=== PATIENT | male | born 1955 | race Caucasian/White ===

== ENCOUNTER 2022-01-18 08:09 | Emergency (ER) | payer OTHER, SELFPAY ==
[2022-01-18 08:22] VITALS: BP 135/88; PULSE 52; RESP 16; TEMP 36.6; O2SAT 99
--- NOTE | 2022-01-18 08:45 | DI.RAD_ITS ---
Exam(s) XR PORTABLE CHEST AP EXAM: XR PORTABLE CHEST AP CLINICAL HISTORY: cough, shortness of breath. TECHNIQUE: 2D digital imaging was performed. COMPARISON: No exams were available for comparison FINDINGS: Single AP portable view. Heart size is upper normal. The mediastinum is not widened. Lungs are clear. No infiltrates nor obvious pleural effusions. IMPRESSION: No acute pulmonary findings on this single AP portable view of the chest. DATA REPOSITORY: RADIATION DOSE DELIVERED: All CT scans at this facility use at least one of these dose optimization techniques: automated exposure control; mA and/or kV adjustment per patient size (includes targeted e xams where dose is matched to clinical indication); or iterative reconstruction.
--- NOTE | 2022-01-18 08:58 | ED.GENADUL_ITS ---
Discharge Plan Disposition Patient Disposition: HOME Condition: Stable Discharge Details Clinical Impression: COVID Primary Care Provider: Unknown,Unknown ED Provider: Jenny Giordano Home Meds and New Rx's Prescriptions: No Action No Known Home Meds Discharge Instructions Instructions: Acute Bronchitis (ED) Additional Instructions: Increased fluid hydration May use Mucinex as needed for productive cough Use your albuterol inhaler, 2 puffs every 4-6 hours as needed for cough, wheeze, shortness of breath Given given a single dose of steroid that will last for approximately 72 hours and will help with your cough and shortness of breath We will call you if your COVID or flu is negative, continue to isolate, Please return should you have new or worsening Discharge Data Discharge Date/Time-TO BE ENTERED AT DEPARTURE: 01/18/22 09:59 Medical Decision Making COVID-positive Patient made aware He is actually on day 10 and is vaccinated but still symptomatic so we will continue to isolate Increase fluid hydration Given single dose of Decadron for comfort Inhaler for home Return precautions discussed and patient expressed understanding Medical Records Medical records reviewed: Yes I reviewed the patient's medical records. Lab Data Lab results reviewed: Yes I reviewed the patient's lab results. HPI General Date/Time Provider Initiated Documentation: 01/18/22 08:26 . HPI Narrative: This 66-year-old gentleman who is otherwise healthy presents with report of cough and congestion for the past 10 days. He states he had 2 negative antigen COVID test. He states that he had myalgias and some intermittent tightness with coughing. He he denies any hemoptysis. He has had green sputum today. He denies any calf pain or swelling, recent flights, surgeries, long drives. He denies any current chest pain. He states he presents secondary to coughing and hungry since morning. 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 Related Data Home Medications Medication Instructions Recorded Confirmed Unknown [No Known Home Meds] 01/18/22 01/18/22 Allergies Allergy/AdvReac Type Severity Reaction Status Date / Time influenza virus vaccine, Allergy Verified 01/18/22 08:25 specific General Stated Complaint: RespSymp YOU: 4 Review of Systems All systems reviewed & are unremarkable except as noted in HPI and below PFSH All Active Problems (Updated 01/19/22 @ 18:36 by OG Herring) COVID (Acute) Social History Smoking/Tobacco Use Status: Never Smoking risk assessment performed?: Yes Alcohol Intake: never Substance use type: does not use Do you feel safe at home: Yes Do you feel safe in your relationship?: Yes Exam Const General: cooperative, comfortable and no acute distress HENMT Head: normal to inspection Mouth: oral mucosae normal Eyes Sclera: sclerae normal Resp Effort & Inspection: normal respiratory effort Auscultation: clear to auscultation bilaterally Cardio Rate: regular rate Rhythm: regular rhythm GI Inspection: normal to inspection Neuro General: patient alert and patient oriented x3 Extrem Other: distal pulses intact Course Vital Signs Vital signs: Vital Signs Temperature 36.6 C 01/18/22 08:22 Pulse 52 L 01/18/22 08:22 Respiratory Rate 16 01/18/22 08:22 Blood Pressure 135/88 01/18/22 08:22 Pulse Oximetry 99 01/18/22 08:22 Temperature 36.6 C 01/18/22 08:22 Temperature Source Skin 01/18/22 08:22 Pulse 52 L 01/18/22 08:22 Respiratory Rate 16 01/18/22 08:22 Respiratory Effort Non-Labored 01/18/22 08:26 Respiratory Depth Normal 01/18/22 08:26 Blood Pressure 135/88 01/18/22 08:22 Blood Pressure Position Sitting 01/18/22 08:22 Pulse Oximetry 99 01/18/22 08:22 Oxygen Delivery Method Room Air 01/18/22 08:22 Oxygen Flow Rate 0 01/18/22 08:22 Pain Level 0 01/18/22 08:22
[2022-01-18 09:51] LABS: Influenza A PCR Negative (Negative); Influenza B PCR Negative (Negative); RSV PCR Negative (Negative)
[2022-01-18] MEDS: Albuterol HFA 8 GM 60 PUFF INH IH (09:57)
[2022-01-18] MEDS: Dexamethasone 10 MG/ML VIAL PO (09:57)
[2022-01-18 10:11] LABS: Source Nasopharynx
[2022-01-18 10:12] LABS: COVID-19 PCR Positive (Negative)
== END 2022-01-18 09:59 | disposition home or self-care (01) ==
PROVIDERS: Emergency Provider Physician Assistant
DX: U07.1 COVID-19 (principal)
CPT/HCPCS: 87637; 94640; 99283; 71045; 99284; J1100

== ENCOUNTER 2022-05-14 13:39 | Emergency (ER) | payer OTHER, SELFPAY ==
[2022-05-14 13:43] VITALS: BP 123/63; PULSE 60; RESP 17; TEMP 36.8; O2SAT 99
--- NOTE | 2022-05-14 14:45 | DI.CT_ITS ---
Exam(s) CT ABDOMEN PELVIS W EXAM: CT ABDOMEN PELVIS W CLINICAL HISTORY: RUQ abd pain TECHNIQUE: Imaging Protocol: Axial computed tomography images with coronal and sagittal reformatted images were created and reviewed CONTRAST MATERIAL: Intravenous: Omnipaque 350 Contrast volume:100 mL Oral: No COMPARISON: No exams were available for comparison FINDINGS: ABDOMEN: Lung Bases: There is a small hiatal hernia. Liver: Normal density. No measurable mass. Portal, Superior Mesenteric, and Splenic Veins: Unremarkable. Gallbladder and Biliary Tract: No radiodense calculus or dilation. Pancreas: Normal density, no abnormal calcifications or inflammatory process. Spleen: Normal. Adrenals: No masses seen. Kidneys: Normal size, contour and axis. No radiodense stones or obstructive uropathy. No masses seen. Abdominal Aorta: Abdominal portion non-dilated. Bowel: No evidence of bowel obstruction. Mild wall thickening in the proximal small bowel. There al so appears to be mild thickening of the wall of the rectum. No evidence of appendicitis. Peritoneal Cavity: There is a trace amount of free fluid in the pelvis. No free air. Lymph Nodes: Mildly enlarged lymph nodes are seen in the mesentery. Bones: Within normal limits for the patient's age. Soft Tissues: There is a small fat containing umbilical hernia. There is a small fat containing left inguinal hernia. PELVIS: Bladder: Symmetric distention, no gross wall thickening. Reproductive Organs: Unremarkable as visualized. Lymph Nodes: Within normal limits. Bones: Within normal limits for the patient's age. IMPRESSION: 1. Trace free fluid in the pelvis. 2. Mild thickening of the wall of the rectum. This may represent inflammatory/infectious process. M ass cannot be excluded. Please correlate clinically. 3. Enlarged mesenteric lymph nodes consistent with mesenteric adenitis. 4. Mild wall thickening in loops of small bowel which may represent a enteritis. RADIATION DOSE DELIVERED: 921.24mGy.cm Total DLP DATA REPOSITORY: All CT scans at this facility are submitted to the National Radiology Data Registry (NRDR) Dose Index Registry (DIR) with the [employer] ([employer]). RADIATION OPTIMIZATION: All CT scans at this facility use at least one of these dose optimization te chniques: automated exposure control; mA and/or kV adjustment per patient size (includes targeted exa ms where dose is matched to clinical indication); or iterative reconstruction.
[2022-05-14 15:28] LABS: Abs Immature Grans 0.01 10^3/uL (0.0-0.06); HCT 41.6 % (40.0-50.0); HGB 14.3 g/dL (13.5-17.5); MCH 31.4 pg (27.0-33.0); MCHC 34.4 % (32.0-36.0); MCV 91 fL (80-95); MPV 10.6 fL (8.0-11.0); Platelet Count 184 10^3/uL (130-400); RBC 4.55 10^6/uL (4.36-5.78); RDW 11.7 % (11.8-14.1); RDW-SD 39.6 fL; WBC 4.73 10^3/uL (4.4-10.8)
[2022-05-14] MEDS: Ondansetron 4 MG/2 ML VIAL IVP (15:37)
[2022-05-14 15:41] LABS: Absolute Eosinophil Count 0.09 10^3/uL (0.0-0.7); Absolute Lymphocyte Count 0.95 10^3/uL (1.2-3.4); Absolute Monocyte Count 0.61 10^3/uL (0.1-0.8); Absolute Neutrophil Count 3.07 10^3/uL (1.2-6.7); Atypical Lymphocytes % 1
[2022-05-14] MEDS: Normal Saline 1,000 ML 1000 ML IV (15:41)
[2022-05-14 15:42] LABS: Diff Comment Manual Differential; Lipase 48 U/L (73-393); Magnesium 2.1 mg/dL (1.8-2.4); RBC Morphology Normal
[2022-05-14 15:45] LABS: ALT 23 U/L (16-63); AST 20 U/L (15-37); Albumin 3.6 g/dL (3.4-5.0); Alkaline Phosphatase 54 U/L (46-116); Anion Gap 7.4 mmol/L (3-11); BUN 19 mg/dL (7-18); CO2 28.6 mmol/L (21.0-32.0); Calcium 8.9 mg/dL (8.5-10.1); Chloride 101 mmol/L (98-107); Estimated GFR 84.05 (mL/min/1.73m2); Glucose 89 mg/dL (74-106); Potassium 4.1 mmol/L (3.5-5.1); Sodium 137 mmol/L (136-145); Total Protein 7.4 g/dL (6.4-8.2)
--- NOTE | 2022-05-14 16:13 | ED.GENADUL_ITS ---
Discharge Plan Disposition Patient Disposition: HOME Condition: Stable Discharge Details Clinical Impression: Acute mesenteric lymphadenitis, Nausea & vomiting Primary Care Provider: NILDA ISSA ED Provider: Enriqueta Steinberg Home Meds and New Rx's Prescriptions: New ondansetron 4 mg tablet,disintegrating 4 mg PO Q8H PRN5 Days Qty: 15 0RF Discharge Instructions Instructions: Acute Nausea and Vomiting (ED) Additional Instructions: Today the CT shows some inflammation of the lymph nodes around her abdomen. Other findings as discussed. Labs are largely within normal limits. Please take the nausea medication up to 3 times daily as needed for nausea and vomiting. Follow up with primary care provider in 3-5 days. Return to ED sooner if any worsening or concerns. Increase oral fluids. Please take Tylenol or Ibuprofen with food every 4-6 hours as needed for pain and swelling. Referrals: NILDA ISSA [Primary Care Provider] - 3 days Discharge Data Discharge Date/Time-TO BE ENTERED AT DEPARTURE: 05/14/22 18:02 Medical Decision Making <Jim Melo NP - Last Filed: 05/15/22 08:32> Patient presenting the emergency department for nausea and vomiting and malaise with subjective chills for the last 3 days. He states it is acutely worsened today with more nausea and episodes of vomiting. Patient denies any other symptoms, food intake that was spoiled. He does state that he was bit by tick 4 days ago but remove the tick right away and it was not engorged or embedded. Denies any rash and joint symptoms and known fever. Physical exam shows right upper quadrant and epigastric tenderness but otherwise unremarkable exam. We will plan on doing standard typical abdominal pain work-up with CT imaging. <Enriqueta Steinberg NP - Last Filed: 05/14/22 20:00> Medical Records Medical records reviewed: Yes I reviewed the patient's medical records. Medical records narrative: 5119: Care assumed from provider (Mike Melo NP) Please see their initial HPI, PE, and documentation. Discussed patient details and case and pending workup and disposition. Patient is hemodynamically stable, and alert and oriented. At the time of signout pending CT abdomen pelvis. Labs are returned which no no leukocytosis, CMP largely within normal limits BUN slightly elevated at 19, no other electrolyte abnormality, lipase within normal limits urinalysis is pending at this time COVID flu and RSV is pending. 1741: Discussed CT results with patient who verbalizes understanding. He is reporting feeling much better. I did discuss the circumferential rectal wall thickening and he reports that he has had a hemorrhoidectomy in the past and is wondering if this is scar tissue. He reports he has been constipated recently but did have a bowel movement with no pain. I did discuss follow-up with his primary care provider who is [facility]. I will give him the radiology read. Discussed home care and strict return instructions. He verbalizes understanding This text was generated using [employer] dictation system, please disregard any oddities of phrase or misspellings. Imaging Data Radiologic Study: Imaging: CT Scan Radiologist's impression: IMPRESSION: 1. Trace free fluid in the pelvis. 2. Possible rectal wall mass or lesion. 3. Mesenteric adenopathy and infiltration of the mesenteric fat consistent with mesenteric lymphadenitis. 4. Enlarged mesenteric vessels possibly related to the mesenteric lymph adenitis. 5. Distended loops of proximal small bowel of uncertain significance. 6. Possible prior appendectomy. 7. Multiple additional findings as discussed above. Thank you for allowing us to participate in the care of your patient. Dictated and Authenticated by: Salma Mendoza MD Lab Data Lab results reviewed: Yes I reviewed the patient's lab results. Labs: Laboratory Tests Range/Units 05/14/22 05/14/22 05/14/22 15:12 15:12 15:12 WBC (4.4-10.8) 10^3/uL 4.73 RBC (4.36-5.78) 10^6/uL 4.55 Hgb (13.5-17.5) g/dL 14.3 Hct (40.0-50.0) % 41.6 MCV (80-95) fL 91 MCH (27.0-33.0) pg 31.4 MCHC (32.0-36.0) % 34.4 RDW (11.8-14.1) % 11.7 L Plt Count (130-400) 10^3/uL 184 MPV (8.0-11.0) fL 10.6 Immature Gran % 0.0 Neutrophils % 65.0 Lymphocytes % 19.0 Atypical Lymphs % 1 Monocytes % 13.0 Eosinophils % 2.0 Basophils % 0.0 Nucleated RBC % (0.0-0.3) % 0.0 Absolute Neutrophils (1.2-6.7) 10^3/uL 3.07 Absolute Lymphocytes (1.2-3.4) 10^3/uL 0.95 L Absolute Monocytes (0.1-0.8) 10^3/uL 0.61 Absolute Eosinophils (0.0-0.7) 10^3/uL 0.09 Absolute Basophils (0.0-0.2) 10^3/uL 0.00 RBC Morphology Normal Sodium (136-145) mmol/L 137 Potassium (3.5-5.1) mmol/L 4.1 Chloride (98-107) mmol/L 101 Carbon Dioxide (21.0-32.0) mmol/L 28.6 Anion Gap (3-11) mmol/L 7.4 BUN (7-18) mg/dL 19 H Creatinine (0.70-1.30) mg/dL 1.0 Est GFR (CKD-EPI 2020) (mL/min/1.73m2) 84.05 Glucose (74-106) mg/dL 89 Calcium (8.5-10.1) mg/dL 8.9 Magnesium (1.8-2.4) mg/dL 2.1 Total Bilirubin (0.2-1.0) mg/dL 1.0 AST (15-37) U/L 20 ALT (16-63) U/L 23 Alkaline Phosphatase (46-116) U/L 54 Total Protein (6.4-8.2) g/dL 7.4 Albumin (3.4-5.0) g/dL 3.6 Lipase (73-393) U/L 48 HPI <Jim Melo NP - Last Filed: 05/15/22 08:32> General Mode of arrival: ambulatory . Date/Time Provider Initiated Documentation: 05/14/22 13:41 . Limitations to Documentation: no limitations . Information obtained by: patient and RN notes reviewed . History of Present Illness 66 year old M presents to the emergency department with the chief complaint of Nausea vomiting, described as moderate, with intensity rated at 5. Quality is described as aching, and is localized to the abdomen. Patient started experiencing this day(s) (4) and it has been constant. No relieving factors improve symptom(s), No exacerbating factors reported . Patient did receive the following treatments prior to arrival, none Related Data Home Medications Medication Instructions Recorded Confirmed ondansetron 4 mg disintegrating 4 mg PO Q8H PRN 5 days #15 tabs 05/14/22 tablet Previous Rx's Medication Instructions Recorded ondansetron 4 mg disintegrating 4 mg PO Q8H PRN 5 days #15 tabs 05/14/22 tablet Allergies Allergy/AdvReac Type Severity Reaction Status Date / Time influenza virus vaccine, Allergy Verified 05/14/22 13:47 specific General Stated Complaint: Nausea/Vomit/Diar YOU: 4 Review of Systems <Jim Melo NP - Last Filed: 05/15/22 08:32> Constitutional Constitutional: Reports chills, Reports fatigue, Reports fever(s), Reports malaise and Reports poor appetite Cardiovascular Cardiovascular: Denies chest pain and Denies dyspnea Respiratory Respiratory: Denies cough and Denies dyspnea Gastrointestinal Gastrointestinal: Reports as per HPI, Reports abdominal pain, Denies melena, Denies change in bowel habits, Denies constipation, Denies diarrhea, Reports nausea and Reports vomiting Genitourinary Genitourinary: Denies hematuria, Denies difficulty urinating and Denies dysuria Musculoskeletal Musculoskeletal: Denies back pain Integumentary/Breasts Skin/Breast: Denies rash Endocrine Endocrine: Reports fatigue PFSH <Jim Melo NP - Last Filed: 05/15/22 08:32> All Active Problems (Updated 05/14/22 @ 17:44 by Enriqueta Steinberg NP) COVID (Acute) Acute mesenteric lymphadenitis (Acute) Nausea & vomiting (Acute) Social History Smoking/Tobacco Use Status: Never Smoking risk assessment performed?: Yes Alcohol Intake: never Drug use: Never Substance use type: does not use Do you feel safe at home: Yes Do you feel safe in your relationship?: Yes Exam <Jim Melo NP - Last Filed: 05/15/22 08:32> Const General: cooperative Orientation: alert, awake and oriented x3 Resp Effort & Inspection: normal respiratory effort and able to speak in complete sentences Auscultation: clear to auscultation bilaterally Cardio Rate: regular rate Rhythm: regular rhythm Heart Sounds: S1 normal and S2 normal GI Palpation: soft, no hepatosplenomegaly, not firm, no guarding, no masses, no pulsatile masses, not rigid, no splenomegaly and tender in the epigastrum and in the RUQ Auscultation: normal bowel sounds Back/Spine/Pelvis Back: no CVA tenderness Neuro General: patient alert, patient awake, patient oriented x3, gait normal and moves all extremities Course <Jim Melo, BORIS - Last Filed: 05/15/22 08:32> Vital Signs Vital signs: Vital Signs Temperature 36.8 C 05/14/22 13:43 Pulse 60 05/14/22 13:43 Respiratory Rate 17 05/14/22 13:43 Blood Pressure 123/63 05/14/22 13:43 Pulse Oximetry 99 05/14/22 13:43 Temperature 36.8 C 05/14/22 13:43 Temperature Source Temporal Artery Scan 05/14/22 13:43 Pulse 60 05/14/22 13:43 Respiratory Rate 17 05/14/22 13:43 Respiratory Effort Non-Labored 05/14/22 13:44 Blood Pressure 123/63 05/14/22 13:43 Blood Pressure Position Sitting 05/14/22 13:43 Pulse Oximetry 99 05/14/22 13:43 Oxygen Delivery Method Room Air 05/14/22 13:43 Oxygen Flow Rate 0 05/14/22 13:43 Pain Level 0 05/14/22 13:43 Lab/Test Results Lab/Test Results: Laboratory Tests Range/Units 05/14/22 05/14/22 05/14/22 15:12 15:12 15:12 WBC (4.4-10.8) 10^3/uL 4.73 RBC (4.36-5.78) 10^6/uL 4.55 Hgb (13.5-17.5) g/dL 14.3 Hct (40.0-50.0) % 41.6 MCV (80-95) fL 91 MCH (27.0-33.0) pg 31.4 MCHC (32.0-36.0) % 34.4 RDW (11.8-14.1) % 11.7 L Plt Count (130-400) 10^3/uL 184 MPV (8.0-11.0) fL 10.6 Immature Gran % 0.0 Neutrophils % 65.0 Lymphocytes % 19.0 Atypical Lymphs % 1 Monocytes % 13.0 Eosinophils % 2.0 Basophils % 0.0 Nucleated RBC % (0.0-0.3) % 0.0 Absolute Neutrophils (1.2-6.7) 10^3/uL 3.07 Absolute Lymphocytes (1.2-3.4) 10^3/uL 0.95 L Absolute Monocytes (0.1-0.8) 10^3/uL 0.61 Absolute Eosinophils (0.0-0.7) 10^3/uL 0.09 Absolute Basophils (0.0-0.2) 10^3/uL 0.00 RBC Morphology Normal Sodium (136-145) mmol/L 137 Potassium (3.5-5.1) mmol/L 4.1 Chloride (98-107) mmol/L 101 Carbon Dioxide (21.0-32.0) mmol/L 28.6 Anion Gap (3-11) mmol/L 7.4 BUN (7-18) mg/dL 19 H Creatinine (0.70-1.30) mg/dL 1.0 Est GFR (CKD-EPI 2020) (mL/min/1.73m2) 84.05 Glucose (74-106) mg/dL 89 Calcium (8.5-10.1) mg/dL 8.9 Magnesium (1.8-2.4) mg/dL 2.1 Total Bilirubin (0.2-1.0) mg/dL 1.0 AST (15-37) U/L 20 ALT (16-63) U/L 23 Alkaline Phosphatase (46-116) U/L 54 Total Protein (6.4-8.2) g/dL 7.4 Albumin (3.4-5.0) g/dL 3.6 Lipase (73-393) U/L 48 Sign Out <Jim Melo NP - Last Filed: 05/15/22 08:32> Sign Out Data: Sign Out Comment: Patient pending CT imaging and review of labs prior to dispo sition. Last updated by Jim Melo NP at 05/14/22 16:15
[2022-05-14 16:33] LABS: COVID-19 PCR Negative (Negative); Influenza A PCR Negative (Negative); Influenza B PCR Negative (Negative); RSV PCR Negative (Negative)
[2022-05-14 16:35] LABS: Source Nasopharynx
[2022-05-14] MEDS: Normal Saline Flush 10 ML SYR IVP (16:36)
[2022-05-14] MEDS: Omnipaque 350 MG/ML 100 ML BTL IJ (16:37)
--- NOTE | 2022-05-14 16:56 | NUR.NOTE ---
Nursing Note: pt just returned from DI. Is feeling much improved and no longer nauseated. is now taking sips of gingerale.
--- NOTE | 2022-05-14 17:15 | DI.VRAD_ITS ---
PROCEDURE INFORMATION: Exam: CT Abdomen And Pelvis With Contrast Exam date and time: 05/14/2022 4:45 PM Age: 66 years old Clinical indication: Other: Ruq abd pain TECHNIQUE: Imaging protocol: Computed tomography of the abdomen and pelvis with contrast. COMPARISON: CR XR PORTABLE CHEST AP 11/20/2021 08:58 FINDINGS: Diaphragm: Hiatal hernia. Liver: Normal. No mass. Gallbladder and bile ducts: Normal. No calcified stones. No ductal dilation. Pancreas: Normal. No ductal dilation. Spleen: Normal. No splenomegaly. Adrenal glands: Normal. No mass. Kidneys and ureters: Normal. No hydronephrosis. Stomach and bowel: Moderate solid stool volume. Dilated proximal small bowel measuring 3.5 cm. Circumferential rectal wall thickening with mild perirectal fat infiltration. Appendix: The appendix is not identified but there is radiopaque density in the right lower quadrant series 4, image 69 which may be surgical clips from prior appendectomy. Intraperitoneal space: Haziness of the mesenteric fat. Trace free fluid in the pelvis series 4, image 75. Vasculature: Enlarged mesenteric vessels with serpiginous pattern of uncertain significance. Lymph nodes: Scattered retroperitoneal lymph nodes. Enlarged mesenteric lymph nodes. Urinary bladder: Unremarkable as visualized. Reproductive: Punctate prostate calcifications. Bones/joints: Multilevel degenerative changes of the spine. Multilevel degenerative changes of the spine. Soft tissues: Umbilical hernia. Fat distension of the left inguinal canal. IMPRESSION: 1. Trace free fluid in the pelvis. 2. Possible rectal wall mass or lesion. 3. Mesenteric adenopathy and infiltration of the mesenteric fat consistent with mesenteric lymphadenitis. 4. Enlarged mesenteric vessels possibly related to the mesenteric lymph adenitis. 5. Distended loops of proximal small bowel of uncertain significance. 6. Possible prior appendectomy. 7. Multiple additional findings as discussed above. Dictated and Authenticated by: Salma Mendoza MD. Ordering:ODALIS Fernandez MD
[2022-05-14 17:48] LABS: Bilirubin Negative (Negative); Blood Negative (Negative); Clarity Clear (Clear); Glucose Negative (Negative); Ketones 40 mg/dL (Negative); Leukocyte Esterase Negative (Negative); Nitrite Negative (Negative)
[2022-05-14] MEDS: Ondansetron O.D.T. 4 MG TABEF, 3 TABS/BTL PO (18:02)
--- NOTE | 2022-05-18 08:31 | NUR.NOTE ---
Nursing Note: At patient's request the work note was faxed to [phone] with attention Freddy.
== END 2022-05-14 18:02 | disposition home or self-care (01) ==
PROVIDERS: Nurse Practitioner Family; Emergency Provider Registered Nurse Emergency; PCP Nurse Practitioner Acute Care
DX: I88.0 Nonspecific mesenteric lymphadenitis (principal); Z20.822 Contact with and (suspected) exposure to COVID-19
CPT/HCPCS: 36415; 80053; 83690; 87637; 96361; 96374; 99285; 74177; 81003; 83735; 85025; 99284; J2405; J3490

== ENCOUNTER 2022-09-15 07:13 | Emergency (ER) | payer OTHER, SELFPAY ==
[2022-09-15 07:19] VITALS: BP 145/85; PULSE 50; RESP 18; TEMP 36.4; O2SAT 98
--- NOTE | 2022-09-15 07:31 | W.ED.GENAD ---
Discharge Plan Disposition Patient Disposition: Home Discharge Details Clinical Impression: Acute sinus infection Primary Care Provider: NILDA ISSA ED Provider: Ramone Norton Home Meds and New Rx's Prescriptions: New amoxicillin-pot clavulanate 875-125 mg tablet 1 tab PO BID Qty: 20 0RF Discharge Instructions Instructions: Sinusitis (ED) Additional Instructions: At this time your symptoms are consistent with mild sinusitis. Likely stems from a viral infection. At this stage it does not appear consistent with a significant bacterial infection. As we discussed together, please utilize a [place] pot or a steamy environment to help loosen the mucus and drain your sinuses. Please apply the gentle massage to the areas on your brow and below your eyes as we discussed 3-5 times per day. Please use [id number] saline rinse/spray to help continue to maintain moisture at your sinuses for drainage. If your symptoms do not improve over the next 3 to 4 days with this treatment, please take the antibiotic as prescribed. We will contact you if your COVID/flu/RSV test results returned positive. If you notice any worsening of your symptoms, or any new symptoms such as vomiting, diarrhea, fever, chills, shortness of breath, chest pain, numbness, weakness, or fainting , please return immediately to the emergency department for reevaluation. Please follow up with your primary care provider as soon as possible for reassessment and reevaluation. As always, it was a pleasure participating in your medical care today. Stand Alone Forms: Work Release Referrals: NILDA ISSA [Primary Care Provider] - Medical Decision Making This is a pleasant 67-year-old male with no significant past medical history who presents today for sinus infection-like symptoms. Patient states that for the last 4 days he has had a mild runny nose, sinus pressure and congestion. He has noted a small tingeing of blood in his mucus when he coughs or sneezes out his nose. He denies any fever or chills. He denies any chest pain or shortness of breath. He is does admit to frontal sinus pressure and a mild headache secondary to this. He has not taken any medications or therapies for treatment. He denies any vision changes. He denies any history of HIV. No other complaints at this time. No other modifying factors. Patient is well-appearing male, no signs of acute distress. Lungs are clear. Vital signs notably stable. Mild pressure and tenderness over the frontal and maxillary sinuses on percussion. Symptoms consistent with mild sinusitis. Likely viral. We will test for flu COVID and RSV and contact him if his results are positive. We will send a prescription for an antibiotic if his symptoms do not improve over the next 3 to 4 days. Will recommend facial nerve massage, humidifier, [place] pot, and saline rinse for home use. Discussed red flags for which to return. I have extensively reviewed the treatment plan and discharge instructions with the patient. I have addressed all patient concerns at this time. The patient was made aware of what symptoms to monitor for that would warrant a return to the emergency department. Discussed the plan with the patient, they demonstrate verbal understanding and agreement with our assessment and plan at this time. The documentation in this chart was dictated using [employer] dictation software. Please excuse any dictation errors. HPI General Date/Time Provider Initiated Documentation: 09/15/22 07:19. HPI Narrative: This is a pleasant 67-year-old male with no significant past medical history who presents today for sinus infection-like symptoms. Patient states that for the last 4 days he has had a mild runny nose, sinus pressure and congestion. He has noted a small tingeing of blood in his mucus when he coughs or sneezes out his nose. He denies any fever or chills. He denies any chest pain or shortness of breath. He is does admit to frontal sinus pressure and a mild headache secondary to this. He has not taken any medications or therapies for treatment. He denies any vision changes. He denies any history of HIV. No other complaints at this time. No other modifying factors. Related Data Home Medications Medication Instructions Recorded Confirmed amoxicillin 875 mg-potassium 1 tab PO BID #20 tabs 09/15/22 clavulanate 125 mg tablet Previous Rx's Medication Instructions Recorded amoxicillin 875 mg-potassium 1 tab PO BID #20 tabs 09/15/22 clavulanate 125 mg tablet Allergies Allergy/AdvReac Type Severity Reaction Status Date / Time influenza virus vaccine, Allergy Verified 09/15/22 07:31 specific General Stated Complaint: Headache YOU: 4 Review of Systems All systems reviewed & are unremarkable except as noted in HPI and below PFSH All Active Problems (Updated 09/15/22 @ 07:32 by BLAKE Jaime COVID (Acute) Acute sinus infection (Acute) Social History Smoking/Tobacco Use Status: Never Smoking risk assessment performed?: Yes Alcohol Intake: never Drug use: Never Substance use type: does not use Do you feel safe at home: Yes Do you feel safe in your relationship?: Yes Exam Narrative Exam Narrative: 1.Const: Well-nourished, Well-developed, appearing stated age 2.Eyes: PERRL, no conjunctival injection, and symmetrical lids. 3.ENT: Atraumatic external nose and ears. Moist MM. Neck: Symmetric, trachea midline, No thyromegaly. Tympanic membranes are ocasio and pearly. Small amount of nasal discharge is noted. No erythema in the posterior oropharynx. Percussion over the frontal and maxillary sinuses demonstrates mild tenderness. 4.CVS: +S1/S2, No murmurs or gallops. Peripheral pulses 2+ and equal in all extremities. Brisk capillary refill in all extremities. 5.RESP: Unlabored respiratory effort. Clear to auscultation bilaterally. No wheezes rales or rhonchi 6.GI: Soft, Nontender/Nondistended, No hepatosplenomegaly. No guarding or rebound. 7.MSK: Normocephalic/Atraumatic, Extremities w/o deformity or ttp No cyanosis or clubbing, Normal movement of all extremities 8.Skin: Warm, Dry. No rashes or lesions. 9.Neuro: hr assistant II-XII grossly intact. Sensation grossly intact, no focal neurologic deficits. 10.Psych: (AAO) x3. Appropriate mood and affect Course Vital Signs Vital signs: Vital Signs Temperature 36.4 C 09/15/22 07:19 Pulse 50 L 09/15/22 07:19 Respiratory Rate 18 09/15/22 07:19 Blood Pressure 145/85 H 09/15/22 07:19 Pulse Oximetry 98 09/15/22 07:19 Temperature 36.4 C 09/15/22 07:19 Temperature Source Oral 09/15/22 07:19 Pulse 50 L 09/15/22 07:19 Respiratory Rate 18 09/15/22 07:19 Respiratory Effort Normal 09/15/22 07:30 Blood Pressure 145/85 H 09/15/22 07:19 Blood Pressure Position Sitting 09/15/22 07:19 Pulse Oximetry 98 09/15/22 07:19 Oxygen Delivery Method Room Air 09/15/22 07:19 Oxygen Flow Rate 0 09/15/22 07:19 Pain Level 2 09/15/22 07:19
[2022-09-15 08:17] LABS: COVID-19 PCR Negative (Negative); Influenza A PCR Negative (Negative); Influenza B PCR Negative (Negative); RSV PCR Negative (Negative); Source Nasopharynx
== END 2022-09-15 07:42 | disposition home or self-care (01) ==
PROVIDERS: Emergency Provider Student in an Organized Health Care Education/Training Program; PCP Nurse Practitioner Acute Care
DX: J01.80 Other acute sinusitis (principal)
CPT/HCPCS: 87637; 99283

== ENCOUNTER → 2023-10-30 05:08 | Outpatient (CLI) | payer MEDICARE, SELFPAY ==
--- NOTE | 2023-10-30 14:06 | DI.RAD_ITS ---
Exam(s) XR CERVICAL SPINE COMP 4-5V EXAM: XR CERVICAL SPINE COMP 4-5V CLINICAL HISTORY: CERVICAL RADICULAR PAIN, M54.12. TECHNIQUE: 2D digital imaging was performed. Five views were performed. COMPARISON: No exams were available for comparison FINDINGS: There is moderate to severe narrowing of the C3-4 through C6-7 disc spaces. There are prominent endp late osteophytes. There is bilateral neural foraminal narrowing at these levels. There is some stra ightening of normal cervical lordosis secondary to degenerative changes. Facet degenerative changes are also present. The soft tissues are unremarkable. IMPRESSION: Advanced degenerative changes. DATA REPOSITORY: RADIATION DOSE DELIVERED:
--- NOTE | 2023-10-30 14:06 | DI.RAD_ITS ---
Exam(s) XR LUMBAR SPINE COMPLETE EXAM: XR LUMBAR SPINE COMPLETE CLINICAL HISTORY: low back pain, chronic,M54.50. TECHNIQUE: 2D digital imaging was performed. Five views. COMPARISON: No exams were available for comparison FINDINGS: BONES: No fracture or destructive lesion. Vertebral body heights are maintained. Facet degenerative changes present in the lower lumbar levels. DISKS: Mild narrowing the L4-5 disc. Moderate narrowing of the L5-S1 disc. Endplate osteophytes not ed throughout. ALIGNMENT: Lumbar spinal alignment is within normal limits. SOFT TISSUE: Normal. IMPRESSION: Degenerative changes throughout, greater at L4-5 and L5-S1. DATA REPOSITORY: RADIATION DOSE DELIVERED:
== END ==
PROVIDERS: PCP Nurse Practitioner; Visit Provider Nurse Practitioner
DX: M54.12 Radiculopathy, cervical region (principal); M54.50 Low back pain, unspecified; M25.78 Osteophyte, vertebrae
CPT/HCPCS: 72050; 72110

== ENCOUNTER 2025-04-25 03:02 | Outpatient (CLI) | payer MEDICARE, SELFPAY ==
[2025-04-25 08:29] LABS: Hemoglobin A1C 5.2 % (<5.7)
[2025-04-25 09:01] LABS: Anion Gap 5.9 mmol/L (3-11); BUN 17 mg/dL (7-18); CO2 31.1 mmol/L (21.0-32.0); Calcium 8.5 mg/dL (8.5-10.1); Calculated LDL 123 mg/dL (<100); Chloride 102 mmol/L (98-107); Cholesterol 178 mg/dL (<200); Estimated GFR 82.49 (mL/min/1.73m2); Glucose 86 mg/dL (74-106); HDL Cholesterol 44 mg/dL (>or=40); Potassium 4.3 mmol/L (3.5-5.1); Sodium 139 mmol/L (136-145); Triglyceride 57 mg/dL (<150)
[2025-04-25 20:01] LABS: PSA, Screening 1.1 ng/mL (<=4.5)
== END 2025-04-25 03:03 | disposition home or self-care (01) ==
PROVIDERS: PCP Nurse Practitioner Family; Visit Provider Nurse Practitioner Family
DX: E78.00 Pure hypercholesterolemia, unspecified (principal); Z85.46 Personal history of malignant neoplasm of prostate; Z13.1 Encounter for screening for diabetes mellitus
CPT/HCPCS: 36415; 76706; 80048; 80061; 84153; 83036

== ENCOUNTER 2025-04-25 03:10 | Outpatient (CLI) | payer MEDICARE, SELFPAY ==
--- NOTE | 2025-04-25 05:45 | DI.US_ITS ---
Exam(s) US AAA SCREENING EXAM: US AAA SCREENING CLINICAL HISTORY: screening for AAA,h/o smoking,z87.891,z13.6 COMPARISON: CT CT ABDOMEN PELVIS W from 05/14/2022 FINDINGS: Abdominal Aorta: Proximal: 2.1 x 2.0 cm Mid: 2.3 x 2.2 cm Distal: 2.3 x 2.3 cm Iliac's: Right: 1.5 x 1.5 cm Left: 1.5 x 1.5 cm No significant atherosclerotic disease is seen. IMPRESSION: No evidence of abdominal aortic aneurysm. DATA REPOSITORY:
== END 2025-04-25 03:30 ==
LOC: DI 03:10
PROVIDERS: PCP Nurse Practitioner Family; Visit Provider Nurse Practitioner Family
DX: Z13.6 Encounter for screening for cardiovascular disorders (principal); Z87.891 Personal history of nicotine dependence
CPT/HCPCS: 76706